=== PATIENT | male | born 1955 | race Hispanic/Latino ===

== ENCOUNTER 2022-04-23 17:18 | Emergency (ER) | payer OTHER ==
[2022-04-23 18:20] LABS: Hemoglobin 13.9 g/dL (14.0-18.0); Mean Corpuscular HGB CONC 32.8 g/dL (32.0-36.0); Mean Corpuscular Volume 94.5 fl (78.0-98.0); Mean Platelet Volume 9.5 fL (7.4-10.4); Platelet Count 280 10x3/uL (130-400); RBC Distribution Width 12.9 % (11.5-14.5); Red Blood Cell (RBC) Count 4.48 mill/uL (4.70-6.10); White Blood Cell (WBC) Count 21.1 10x3/uL (4.8-10.8)
[2022-04-23 18:23] LABS: MDiff Complete? YES; Manual Diff?? YES
[2022-04-23 18:27] LABS: Band 1 % (5-11); Eosinophils 1 % (0-10); Lymphocytes 4 % (21-51); Monocytes 2 % (0-10); Neutrophil 92 % (42-75)
[2022-04-23 18:28] LABS: Platelet Morphology Comment Appears Adequate
[2022-04-23 18:29] LABS: ALT (SGPT) 45 U/L (8-55); AST (SGOT) 29 U/L (5-34); Albumin 3.6 g/dL (3.4-4.8); Alkaline Phosphatase 82 U/L (40-110); Anion Gap 15 mmol/L (10-20); BUN (Urea Nitrogen) 16 mg/dL (8.4-25.7); Bilirubin, Total 0.7 mg/dL (0.2-1.2); Calc. Creatinine Clearance 0 mL/min (70-130); Calcium 9.2 mg/dL (7.8-10.44); Carbon Dioxide 23 mmol/L (23-31); Chloride 101 mmol/L (98-107); Estimated GFR 99; Globulin 4.1 g/dL (2.4-3.5); Glucose 203 mg/dL (80-115); Potassium 3.9 mmol/L (3.5-5.1); Protein, Total 7.7 g/dL (5.8-8.1); Sodium 135 mmol/L (136-145); Uric Acid 4.9 mg/dL (3.5-7.2)
[2022-04-23] MEDS ORDERED: Cefepime 2 GM VIAL ONE (18:43)
[2022-04-23] MEDS ORDERED: Morphine 4 MG/ML VIAL ONE ×2 (18:43→22:15)
[2022-04-23] MEDS ORDERED: Ondansetron PF 4 MG/2 ML Vial ONE (18:43)
[2022-04-23] MEDS ORDERED: Sodium Chloride 0.9% 100 ML ONE (18:43)
[2022-04-23] MEDS ORDERED: Vancomycin 1 GM VIAL ONE (19:27)
[2022-04-23] MEDS ORDERED: Sodium Chloride 0.9% 500 ML ONE (19:27)
[2022-04-23] MEDS ORDERED: Ketorolac Tromethamine 30 MG/ML VIAL ONE (20:03)
[2022-04-23 20:13] LABS: SARS-CoV-2 NAA Rapid Test Not Detected (NotDetected)
== END 2022-04-24 00:33 | disposition short-term general hospital (02) ==
LOC: NAV ERS 17:18
DX: L03.115 Cellulitis of right lower limb (principal); R79.1 Abnormal coagulation profile; R65.10 Systemic inflammatory response syndrome (SIRS) of non-infectious origin without acute organ dysfunction; E11.9 Type 2 diabetes mellitus without complications; J44.9 Chronic obstructive pulmonary disease, unspecified; I11.0 Hypertensive heart disease with heart failure; I50.9 Heart failure, unspecified; Z20.822 Contact with and (suspected) exposure to COVID-19; Z79.82 Long term (current) use of aspirin; Z79.84 Long term (current) use of oral hypoglycemic drugs; Z79.899 Other long term (current) drug therapy
CPT/HCPCS: 36415; 80053; 83605; 84550; 85025; 85379; 87040; 87077; 87149; 96365; 96366; 96367; 96375; 96376; J0692; J1885; J2270; J2405; J3370; J3490; J7030; U0002